=== PATIENT | female | born 1970 | race Caucasian/White ===

== ENCOUNTER 2016-12-08 21:52 | Emergency (ER) | payer OTHER ==
[2016-12-08] MEDS ORDERED: Zofran 4 MG/2 ML VIAL IV ONE (22:51)
[2016-12-08] MEDS ORDERED: Hydromorphone 1 mg/ml Ampule IV ONE (22:51)
[2016-12-08] MEDS ORDERED: Sodium Chloride 0.9% 1000 ML 1,000 ML IV STA (22:51)
--- NOTE | 2016-12-08 22:59 | ERPHSYRPT ---
- History of Present Illness Time Seen by Provider: 12/08/16 22:45 Historian: patient Exam Limitations: clinical condition Patient Subjective Stated Complaint: pt states she has been having abd pain mostly in the llq. states she has had pancreatitis approx 2 mos ago and this pain feels similar. Triage Nursing Assessment: pt alert and oriented, answers questions approp. pt ambulatory with steady gait noted. skin pink warm and dry. respirations nonlabored with lungs cta. abd soft and tender on lt side. bowel sounds present and hypo. pt states she is passing flatus. Physician History: PATIENT WITH HISTORY OF POST TRAUMATIC STRESS SYNDROME AND PANCREATITIS COMPLAINS OF LEFT SIDED AND LOWER ABDOMINAL PAINS FOR 5 HOURS ASSOCIATED NAUSEA. DENIES URINARY SYMPTOMS, FEVER, EMESIS OR DIARRHEA. Timing/Duration: today Activities at Onset: none Quality: sharpness Abdominal Pain Onset Location: LLQ Pain Radiation: no radiation Severity of Pain-Max: severe Severity of Pain-Current: severe Modifying Factors: Improves With: nothing Associated Symptoms: nausea Previous symptoms: no prior history Allergies/Adverse Reactions: morphine Allergy (Mild, Verified 12/08/16 22:14) Rash Home Medications: Alprazolam 0.25 mg [xanAX 0.25 MG] 1 mg PO HS 09/26/16 [History] Venlafaxine HCl ER 75 mg [Effexor XR 75 MG] 75 mg PO DAILY 09/26/16 [ History] Hx Tetanus, Diphtheria Vaccination/Date Given: Yes Hx Influenza Vaccination/Date Given: No Hx Pneumococcal Vaccination/Date Given: No Immunizations Up to Date: Yes - Review of Systems Constitutional: No Fever, No Chills Eyes: No Symptoms Ears, Nose, & Throat: No Symptoms, Epistaxis Respiratory: No Symptoms, No Cough, No Dyspnea Cardiac: No Symptoms, No Chest Pain, No Edema, No Syncope Abdominal/Gastrointestinal: Abdominal Pain, Nausea, No Vomiting, No Diarrhea Genitourinary Symptoms: No Symptoms, No Dysuria Musculoskeletal: No Symptoms, No Back Pain, No Neck Pain Skin: No Symptoms, No Rash Neurological: No Dizziness, No Focal Weakness, No Sensory Changes Psychological: No Symptoms Endocrine: No Symptoms All Other Systems: Reviewed and Negative - Past Medical History Pertinent Past Medical History: Yes Neurological History: No Pertinent History ENT History: No Pertinent History Cardiac History: Other Respiratory History: No Pertinent History Endocrine Medical History: No Pertinent History Musculoskeletal History: No Pertinent History GI Medical History: No Pertinent History, Gallbladder Disease, Irritable Bowel, Polyps History: No Pertinent History Psycho-Social History: Anxiety, Depression Female Reproductive Disorders: Abnormal Uterine Bleeding, Menstrual Problems Other Medical History: SMALL VESSEL DISEASE - Past Surgical History Past Surgical History: Yes Neuro Surgical History: No Pertinent History Cardiac: Cardiac Catheterization Respiratory: No Pertinent History Gastrointestinal: Cholecystectomy Genitourinary: No Pertinent History Musculoskeletal: Orthopedic Surgery Female Surgical History: Other Other Surgical History: Novasure surgery: patient states they cauterized her cervix and uterine lining, tubes removed - Social History Smoking Status: Former smoker Exposure to second hand smoke: No Drug Use: none Patient Lives Alone: No - Female History Hx Last Menstrual Period: 2008 ablation Hx Now: No - Nursing Vital Signs Nursing Vital Signs: Initial Vital Signs Temperature 97.4 F Temperature Source Oral Pulse Rate 78 Respiratory Rate 18 Blood Pressure [] 139/91 Pain Intensity 5 - Physical Exam General Appearance: no apparent distress, alert Eye Exam: PERRL/EOMI, eyes nml inspection Ears, Nose, Throat Exam: normal ENT inspection, pharynx normal, moist mucous membranes Neck Exam: normal inspection, non-tender, supple, full range of motion Respiratory Exam: normal breath sounds, lungs clear, No respiratory distress Cardiovascular Exam: regular rate/rhythm, normal heart sounds Gastrointestinal/Abdomen Exam: soft, normal bowel sounds, No tenderness (LLQ TENDERNESS), No mass Back Exam: normal inspection, normal range of motion, CVA tenderness, other ( LEFT CVA TENDERNESS), No vertebral tenderness Extremity Exam: normal inspection, normal range of motion, pelvis stable Neurologic Exam: alert, oriented x 3, cooperative, normal mood/affect, nml cerebellar function, sensation nml, No motor deficits Skin Exam: normal color, warm, dry SpO2 Interpretation: normal SpO2: 97 Oxygen Delivery: Room Air - CT Exams Abdomen/Pelvis CT Interpretation: Tele-radiologist Report (NO ACUTE FINDINGS) Ordered Tests: Active Orders 24 hr Category Date Time Status IV Insertion STAT Care 12/08/16 22:51 Active ABDOMEN AND PELVIS W CONTRAST [CT] Stat Exams 12/08/16 22:54 Taken AMYLASE Stat Lab 12/08/16 22:30 Completed BLOOD CULTURE Stat Lab 12/08/16 23:05 Received BMP Stat Lab 12/08/16 22:30 Completed CBC W DIFF Stat Lab 12/08/16 22:30 Completed LIPASE Stat Lab 12/08/16 22:30 Completed UA W/ MICROSCOPIC Stat Lab 12/08/16 22:15 Completed Urine Triage Profile Stat Lab 12/08/16 22:15 Completed Medication Summary Discontinued Medications Generic Name Dose Route Start Last Admin Trade Name Efrain PRN Reason Stop Dose Admin Acetaminophen/Hydrocodone Bitart Confirm 12/09/16 02:32 [place] 10/325 Mg Tablet Administered 12/09/16 02:33 Dose 2 tab .ROUTE .STK-MED ONE Hydromorphone HCl 1 mg 12/08/16 22:51 12/08/16 23:11 Hydromorphone 1 Mg/Ml Ampule IV 12/08/16 22:52 1 mg STAT ONE Administration Hydromorphone HCl Confirm 12/08/16 23:01 Hydromorphone 1 Mg/Ml Ampule Administered 12/08/16 23:02 Dose 1 mg .ROUTE .STK-MED ONE Sodium Chloride 1,000 mls @ 999 mls/hr 12/08/16 22:51 12/08/16 23:12 Sodium Chloride 0.9% 1000 Ml IV 12/08/16 23:51 999 mls/hr .Q1H1M STA Administration Sodium Chloride Confirm 12/08/16 23:01 Sodium Chloride 0.9% 1000 Ml Administered 12/08/16 23:02 Dose 1,000 mls @ ud .ROUTE .STK-MED ONE Sodium Chloride Confirm 12/09/16 00:47 Sodium Chloride 0.9% 1000 Ml Administered 12/09/16 00:48 Dose 1,000 mls @ ud .ROUTE .STK-MED ONE Sodium Chloride 1,000 mls @ 999 mls/hr 12/09/16 00:52 12/09/16 00:53 Sodium Chloride 0.9% 1000 Ml IV 12/09/16 01:52 999 mls/hr .Q1H1M STA Administration Ketorolac Tromethamine 30 mg 12/09/16 00:46 12/09/16 00:53 Toradol 30 Mg Injection IV 12/09/16 00:47 30 mg STAT ONE Administration Ketorolac Tromethamine Confirm 12/09/16 00:47 Toradol 30 Mg Injection Administered 12/09/16 00:48 Dose 30 mg .ROUTE .STK-MED ONE Ketorolac Tromethamine Confirm 12/09/16 00:51 Toradol 30 Mg Injection Administered 12/09/16 00:52 Dose 30 mg .ROUTE .STK-MED ONE Ondansetron HCl 4 mg 12/08/16 22:51 12/08/16 23:11 Zofran 4 Mg/2 Ml Vial IV 12/08/16 22:52 4 mg STAT ONE Administration Ondansetron HCl Confirm 12/08/16 23:01 Zofran 4 Mg/2 Ml Vial Administered 12/08/16 23:02 Dose 4 mg .ROUTE .STK-MED ONE Lab/Rad Data: Laboratory Result Diagrams 12/08/16 22:30 12/08/16 22:30 Laboratory Results 12/08/16 12/08/16 12/08/16 Range/Units 22:30 22:30 22:15 WBC 10.9 H (4.0-10.5) K/mm3 RBC 4.13 (4.1-5.4) M/mm3 Hgb 13.3 (12.0-16.0) gm/dl Hct 40.2 (35-47) % MCV 97.3 (78-100) fl MCH 32.2 H (26-32) pg MCHC 33.1 (32-36) g/dl RDW 12.0 (11.5-14.0) % Plt Count 238 (150-450) K/mm3 MPV 10.6 H (6-9.5) fl Gran % 55.8 (36.0-66.0) % Lymphocytes % 25.3 (24.0-44.0) % Monocytes % 12.9 H (0.0-12.0) % Eosinophils % 5.6 H (0.00-5.0) % Basophils % 0.4 (0.0-0.4) % Basophils # 0.04 (0-0.4) Sodium 140 (136-145) mEq/L Potassium 3.8 (3.5-5.1) mEq/L Chloride 103 (98-107) mEq/L Carbon Dioxide 28.3 (21-32) mEq/L Anion Gap 12.2 (5-15) MEQ/L BUN 12 (9-20) mg/dL Creatinine 0.85 (0.55-1.30) mg/dl Estimated GFR > 60 ML/MIN Glucose 101 (70-110) MG/DL Calcium 8.7 (8.5-10.1) mg/dL Amylase 55 (25-115) U/L Lipase 109 (73-393) U/L Ur Collection Type Urine Color (YELLOW) Urine Appearance (CLEAR) Urine pH (5-6) Ur Specific [place] (1.005-1.025) Urine Protein (Negative) Urine Glucose (UA) (NEGATIVE) mg/dL Urine Ketones (NEGATIVE) Urine Nitrite (NEGATIVE) Urine Bilirubin (NEGATIVE) Urine Urobilinogen (0-1) mg/dL Urine WBC (Auto) (NEGATIVE) Urine RBC (Auto) (0-5) Golden/ul Urine Microscopic RBC (0-2) /HPF Urine Microscopic WBC (0-5) /HPF Ur Epithelial Cells (FEW) /HPF Urine Bacteria (NEGATIVE) /HPF Urine Mucus (NEGATIVE) /HPF Urine Opiates Level NEG. (NEGATIVE) Ur Methadone NEG. (NEGATIVE) Urine Barbiturates NEG. (NEGATIVE) Ur Phencyclidine (PCP) NEG. (NEGATIVE) Urine Amphetamine NEG. (NEGATIVE) U Benzodiazepine Level POS. (NEGATIVE) Urine Cocaine NEG. (NEGATIVE) Urine Marijuana (THC) NEG. (NEGATIVE) Specimen Received 12/08/16 Range/Units 22:15 WBC (4.0-10.5) K/mm3 RBC (4.1-5.4) M/mm3 Hgb (12.0-16.0) gm/dl Hct (35-47) % MCV (78-100) fl MCH (26-32) pg MCHC (32-36) g/dl RDW (11.5-14.0) % Plt Count (150-450) K/mm3 MPV (6-9.5) fl Gran % (36.0-66.0) % Lymphocytes % (24.0-44.0) % Monocytes % (0.0-12.0) % Eosinophils % (0.00-5.0) % Basophils % (0.0-0.4) % Basophils # (0-0.4) Sodium (136-145) mEq/L Potassium (3.5-5.1) mEq/L Chloride (98-107) mEq/L Carbon Dioxide (21-32) mEq/L Anion Gap (5-15) MEQ/L BUN (9-20) mg/dL Creatinine (0.55-1.30) mg/dl Estimated GFR ML/MIN Glucose (70-110) MG/DL Calcium (8.5-10.1) mg/dL Amylase (25-115) U/L Lipase (73-393) U/L Ur Collection Type CLEAN CATCH Urine Color YELLOW (YELLOW) Urine Appearance CLEAR (CLEAR) Urine pH 6.5 (5-6) Ur Specific [place] >=1.030 (1.005-1.025) Urine Protein TRACE (Negative) Urine Glucose (UA) NEGATIVE (NEGATIVE) mg/dL Urine Ketones NEGATIVE (NEGATIVE) Urine Nitrite NEGATIVE (NEGATIVE) Urine Bilirubin NEGATIVE (NEGATIVE) Urine Urobilinogen 2 (0-1) mg/dL Urine WBC (Auto) NEGATIVE (NEGATIVE) Urine RBC (Auto) NEGATIVE (0-5) Golden/ul Urine Microscopic RBC 2-5 (0-2) /HPF Urine Microscopic WBC 0-2 (0-5) /HPF Ur Epithelial Cells MANY (FEW) /HPF Urine Bacteria MODERATE (NEGATIVE) /HPF Urine Mucus MANY (NEGATIVE) /HPF Urine Opiates Level (NEGATIVE) Ur Methadone (NEGATIVE) Urine Barbiturates (NEGATIVE) Ur Phencyclidine (PCP) (NEGATIVE) Urine Amphetamine (NEGATIVE) U Benzodiazepine Level (NEGATIVE) Urine Cocaine (NEGATIVE) Urine Marijuana (THC) (NEGATIVE) Specimen Received 12/08/16 2300 - Progress Progress: improved, pain not gone completely Progress Note: 12/09/16 00:33 PATIENT GIVEN IV NORMAL SALINE 1 LITER BOLUS, ZOFRAN 4MG, DILAUDID 1MG IV, FOLLOWED BY TORADOL 30MG IV WITH MODERATE RELIEF 12/09/16 02:31 Counseled pt/family regarding: lab results, diagnosis, need for follow-up, rad results - Departure Time of Disposition: 02:30 Departure Disposition: Home Clinical Impression: LEFT RENAL COLIC Condition: Stable Critical Care Time: No Referrals: CRUZ SUTHERLAND NP [Primary Care Provider] - Additional Instructions: USE STRAINER TO STRAIN URINE FOR 1 WEEK. TORADOL 10MG EVERY 6 HOURS FOR MILD TO MODERATE PAIN AND [place] 10/325 EVERY 4 HOURS FOR SEVERE PAIN. CONSULT YOUR FAMILY PHYSICIAN FOR EVALUATION IN 1 WEEK. Prescriptions: Hydrocodone/APAP 10/325 mg [[place] 10/325 MG Tablet] 1 tab PO Q4H PRN PRN # 15 tablet PRN Reason: Severe Pain Ketorolac Tromethamine [Toradol] 10 mg PO Q6H PRN PRN #20 tablet PRN Reason: Mild To Moderate Pain
[2016-12-08] MEDS ORDERED: Hydromorphone 1 mg/ml Ampule ONE (23:01)
[2016-12-08] MEDS ORDERED: Zofran 4 MG/2 ML VIAL ONE (23:01)
[2016-12-08] MEDS ORDERED: Sodium Chloride 0.9% 1000 ML 1,000 ML ONE (23:01)
[2016-12-08 23:02] LABS: BASOPHIL % 0.4 % (0.0-0.4); Eosinophil % 5.6 % (0.00-5.0); Granulocytes % 55.8 % (36.0-66.0); Lymphocytes % 25.3 % (24.0-44.0); Mean Cell Volume 97.3 fl (78-100); Mean Corpuscular Hemoglobin 32.2 pg (26-32); Mean Platelet Volume 10.6 fl (6-9.5); Monocytes % 12.9 % (0.0-12.0); Platelet Count 238 K/mm3 (150-450); Red Blood Count 4.13 M/mm3 (4.1-5.4); White Blood Count 10.9 K/mm3 (4.0-10.5)
[2016-12-08 23:07] LABS: ANION GAP 12.2 MEQ/L (5-15); BLOOD UREA NITROGEN 12 mg/dL (9-20); CHLORIDE 103 mEq/L (98-107); Carbon Dioxide 28.3 mEq/L (21-32); Glucose 101 MG/DL (70-110); LIPASE 109 U/L (73-393); Potassium 3.8 mEq/L (3.5-5.1); SODIUM 140 mEq/L (136-145)
[2016-12-08 23:23] LABS: Bacteria MODERATE /HPF (NEGATIVE); COMPLETE URINE MICROSCOPIC? YES; Collection Type CLEAN CATCH; Epithelial Cells MANY /HPF (FEW); Mucus MANY /HPF (NEGATIVE); Ph 6.5 (5-6); WBC 0-2 /HPF (0-5)
[2016-12-09] MEDS ORDERED: TORAdol 30 mg Injection IV ONE (00:46)
[2016-12-09] MEDS ORDERED: TORAdol 30 mg Injection ONE ×2 (00:47→00:51)
[2016-12-09] MEDS ORDERED: Sodium Chloride 0.9% 1000 ML 1,000 ML ONE (00:47)
[2016-12-09] MEDS ORDERED: Sodium Chloride 0.9% 1000 ML 1,000 ML IV STA (00:52)
[2016-12-09] MEDS ORDERED: Norco 10/325 MG Tablet ONE (02:32)
[2016-12-09 02:34] VITALS: BP 139/91; PULSE 78
[2016-12-09] MEDS ORDERED: Norco 10/325 MG Tablet PO ONE (02:35)
[2016-12-09 02:36] VITALS: O2SAT 97
--- NOTE | 2016-12-09 08:33 | XRAY ---
Indication: Left lower quadrant pain. Fever. History of pancreatitis. Multiple contiguous axial images obtained through the abdomen and pelvis using 80 cc Isovue 370 contrast only. Comparison: March 02, 2015. Lung bases again demonstrates minimal bibasilar dependent atelectasis. No consolidation or effusion. Heart is not enlarged. Noncontrasted stomach and bowel loops appear nonobstructed. There is now mild scattered colonic fecal debris throughout. Normal appendix. Again previous cholecystectomy. No free fluid/air. Remaining liver, pancreas, spleen, adrenal glands, kidneys, ureters, bladder, uterus, and aorta appear unremarkable. No pathologic retroperitoneal lymphadenopathy. Osseous structures intact. Impression: 1. Mild fecal stasis without obstruction. 2. No new or acute intra-abdominal/pelvic abnormalities. Comment: Preliminary interpretation was made by [facility] [[email or web address]]. No discrepancy. CTDI 21.50
== END 2016-12-09 02:50 | disposition home or self-care (01) ==
LOC: ED 21:52
DX: N23 Unspecified renal colic (principal); R10.32 Left lower quadrant pain; R11.10 Vomiting, unspecified
CPT/HCPCS: 36000; 36415; 74177; 80048; 80307; 81000; 82150; 83690; 85025; 87040; 96360; 96361; 96374; 96375; 99283; 99284; J1170; J1885; J2405

== ENCOUNTER 2018-10-17 11:17 | Emergency (ER) | payer OTHER ==
[2018-10-17 11:34] VITALS: O2SAT 98
[2018-10-17] MEDS ORDERED: Sodium Chloride 0.9% 1000 ML 1,000 ML IV STA (12:03)
--- NOTE | 2018-10-17 12:09 | ERPHSYRPT ---
- History of Present Illness Time Seen by Provider: 10/17/18 12:05 Historian: patient Exam Limitations: no limitations Patient Subjective Stated Complaint: pt here left flank pain off and on for 3 weeks, but has been consitant for a week now, has been seen twice for this problem and had blood work done Triage Nursing Assessment: pt alert, resp easy. skin w/d/p. abd soft with bs heard, no edema noted Physician History: 48-year-old white female with history of PTSD, pancreatitis, gallbladder disease , irritable bowel, polyps, anxiety, depression Patient arrives with complaint of left flank pain for 3 weeks she apparently [facility] and is also been seen by Larissa Wooten. She states that she was told that her renal chemistries were somewhat abnormal. She states that she was scheduled the for either scan or ultrasound of her kidneys next week however she feels like she cannot wait any longer she feels like she has increasing pain in her left flank and she feels like she is having shakiness. Past medical history includes PTSD, pancreatitis, gallbladder disease, irritable bowel disease, polyps, anxiety, depression, abnormal uterine bleeding , small vessel disease Past surgical history includes cardiac catheter, cholecystectomy, orthopedic surgery, cervix uterus cauterized and tubes removed. Timing/Duration: week(s) (3 weeks) Activities at Onset: none Quality: aching Abdominal Pain Onset Location: flank (left flank) Pain Radiation: no radiation Severity of Pain-Max: moderate Severity of Pain-Current: moderate Modifying Factors: Improves With: nothing Associated Symptoms: back (left flank pain), No chest pain, No diaphoresis, No diarrhea, No fever/chills, No fatigue, No headache, No heartburn, No loss of appetite, No nausea, No neck pain, No rash, No shortness of breath, No syncope, No testicular pain, No vomiting, No weakness Previous symptoms: recently seen ([facility] at [facility] and by Larissa Wooten for same) Allergies/Adverse Reactions: morphine Allergy (Mild, Verified 10/17/18 11:34) Rash Home Medications: Alprazolam 0.25 mg [xanAX 0.25 MG] 1 mg PO HS 09/26/16 [History] Venlafaxine HCl ER 75 mg [Effexor XR 75 MG] 225 mg PO DAILY 09/26/16 [ History] Trazodone HCl 50 mg [Desyrel 50 mg] 100 mg DAILY 10/17/18 [History] Hx Tetanus, Diphtheria Vaccination/Date Given: No Hx Influenza Vaccination/Date Given: No Hx Pneumococcal Vaccination/Date Given: No Immunizations Up to Date: Yes - Review of Systems Constitutional: No Fever, No Chills Eyes: No Symptoms Ears, Nose, & Throat: No Symptoms Respiratory: No Cough, No Dyspnea Cardiac: No Chest Pain, No Edema, No Syncope Abdominal/Gastrointestinal: No Abdominal Pain, No Nausea, No Vomiting, No Diarrhea, No Constipation, No Hematemesis, No Hematochezia, No Melena, No Dysphagia Genitourinary Symptoms: Flank Pain (left flank pain), No Dysuria, No Frequency, No Hematuria, No Hesitancy, No Incontinence, No Urgency, No Urinary Retention, No Menorrhagia, No , No Vaginal Bleeding, No Vaginal Discharge, No Vaginal Itching Musculoskeletal: Back Pain (left flank pain), No Arthralgias, No Neck Pain, No Deformity, No Fall, No Injury, No Joint Redness, No Joint Pain, No Joint Swelling, No Myalgias Skin: No Rash Neurological: No Dizziness, No Focal Weakness, No Sensory Changes Psychological: No Symptoms Endocrine: No Symptoms All Other Systems: Reviewed and Negative - Past Medical History Pertinent Past Medical History: Yes Neurological History: No Pertinent History ENT History: No Pertinent History Cardiac History: Other Respiratory History: No Pertinent History Endocrine Medical History: No Pertinent History Musculoskeletal History: No Pertinent History GI Medical History: No Pertinent History, Gallbladder Disease, Irritable Bowel, Polyps History: No Pertinent History Psycho-Social History: Anxiety, Depression Female Reproductive Disorders: Abnormal Uterine Bleeding, Menstrual Problems Other Medical History: SMALL VESSEL DISEASE - Past Surgical History Past Surgical History: Yes Neuro Surgical History: No Pertinent History Cardiac: Cardiac Catheterization Respiratory: No Pertinent History Gastrointestinal: Cholecystectomy Genitourinary: No Pertinent History Musculoskeletal: Orthopedic Surgery Female Surgical History: Other Other Surgical History: Novasure surgery: patient states they cauterized her cervix and uterine lining, tubes removed - Social History Smoking Status: Never smoker Exposure to second hand smoke: No Drug Use: none Patient Lives Alone: No - Female History Hx Last Menstrual Period: 11 years ago Hx Now: No - Nursing Vital Signs Nursing Vital Signs: Initial Vital Signs Temperature 98.6 F 12/20/18 11:21 Pulse Rate 92 H 10/17/18 11:21 Respiratory Rate 16 10/17/18 11:21 Blood Pressure 130/83 10/17/18 11:21 O2 Sat by Pulse Oximetry 98 10/17/18 11:21 Pain Scale Pain Intensity 3 - Physical Exam General Appearance: no apparent distress, alert Eye Exam: PERRL/EOMI, eyes nml inspection Ears, Nose, Throat Exam: normal ENT inspection, pharynx normal, moist mucous membranes Neck Exam: normal inspection, non-tender, supple, full range of motion Respiratory Exam: normal breath sounds, lungs clear, No respiratory distress Cardiovascular Exam: regular rate/rhythm, normal heart sounds Gastrointestinal/Abdomen Exam: soft, normal bowel sounds, No tenderness, No mass Back Exam: normal range of motion, CVA tenderness (left flank tenderness), No vertebral tenderness, No rash, No decreased range of motion, No muscle spasm, No point tenderness Extremity Exam: normal inspection, normal range of motion, pelvis stable Neurologic Exam: alert, oriented x 3, cooperative, data communications software consultant II-XII nml as tested, normal mood/affect, nml cerebellar function, sensation nml, No motor deficits SpO2 Interpretation: normal (98%) SpO2: 98 Oxygen Delivery: Room Air - Course Nursing assessment & vital signs reviewed: Yes - CT Exams Abdomen/Pelvis CT Interpretation: Discussed w/radiologist (CT abdomen and pelvis: Impression: 1. Negative renal calculus for obstructive uropathy. 2. New 2.5 cm left ovarin cyst. 3. Mild fecal stasis without obstruction and tiny fatty umbilical hernia, 4. Remaining CT abdomen/pelvis without contrast negative.) Ordered Tests: Active Orders 24 hr Category Date Time Status IV Insertion STAT Care 10/17/18 12:03 Active ABDOMEN AND PELVIS W/0 CONTRAS [CT] Stat Exams 10/17/18 12:31 Completed AMYLASE Stat Lab 10/17/18 12:15 Completed CBC W DIFF Stat Lab 10/17/18 12:15 Completed CMP Stat Lab 10/17/18 12:15 Completed HCG QUALITATIVE,SERUM Stat Lab 10/17/18 12:00 Completed LIPASE Stat Lab 10/17/18 12:15 Completed UA W/RFX UR CULTURE Stat Lab 10/17/18 12:07 Completed Urine Triage Profile Stat Lab 10/17/18 12:07 Completed Medication Summary Discontinued Medications Generic Name Dose Route Start Last Admin Trade Name Efrain PRN Reason Stop Dose Admin Sodium Chloride 1,000 mls @ 999 mls/hr 10/17/18 12:03 10/17/18 13:05 Sodium Chloride 0.9% 1000 Ml IV 10/17/18 13:03 Infused .Q1H1M STA Infusion Sodium Chloride Confirm 10/17/18 12:10 Sodium Chloride 0.9% 1000 Ml Administered 10/17/18 12:11 Dose 1,000 mls @ ud .ROUTE .STK-MED ONE Lab/Rad Data: Laboratory Result Diagrams 10/17/18 12:15 10/17/18 12:15 Laboratory Results 10/17/18 10/17/18 10/17/18 Range/Units 12:15 12:15 12:07 WBC 5.8 (4.0-10.5) K/mm3 RBC 4.34 (4.1-5.4) M/mm3 Hgb 14.0 (12.0-16.0) gm/dl Hct 42.9 (35-47) % MCV 98.8 (78-100) fl MCH 32.3 H (26-32) pg MCHC 32.6 (32-36) g/dl RDW 12.6 (11.5-14.0) % Plt Count 236 (150-450) K/mm3 MPV 10.7 H (6-9.5) fl Gran % 47.5 (36.0-66.0) % Eos # (Auto) 0.39 (0-0.5) Absolute Lymphs (auto) 2.18 (1.0-4.6) Absolute Monos (auto) 0.48 (0.0-1.3) Lymphocytes % 37.3 (24.0-44.0) % Monocytes % 8.2 (0.0-12.0) % Eosinophils % 6.7 H (0.00-5.0) % Basophils % 0.3 (0.0-0.4) % Absolute Granulocytes 2.77 (1.4-6.9) Basophils # 0.02 (0-0.4) Sodium 141 (137-145) mmol/L Potassium 3.7 (3.5-5.1) mmol/L Chloride 104 (98-107) mmol/L Carbon Dioxide 30 (22-30) mmol/L Anion Gap 11.1 (5-15) MEQ/L BUN 11 (7-17) mg/dL Creatinine 0.73 (0.52-1.04) mg/dL Estimated GFR > 60.0 ML/MIN Glucose 105 (74-106) mg/dL Calcium 9.1 (8.4-10.2) mg/dL Total Bilirubin 0.70 (0.2-1.3) mg/dL AST 19 (14-36) U/L ALT 16 (0-35) U/L Alkaline Phosphatase 74 (38-126) U/L Serum Total Protein 7.3 (6.3-8.2) g/dL Albumin 4.3 (3.5-5.0) g/dL Amylase 75 (30-110) U/L Lipase 49 (23-300) U/L Serum , Qual (Negative) Urine Color (YELLOW) Urine Appearance (CLEAR) Urine pH (5-6) Ur Specific [place] (1.005-1.025) Urine Protein (Negative) Urine Ketones (NEGATIVE) Urine Blood (0-5) Golden/ul Urine Nitrite (NEGATIVE) Urine Bilirubin (NEGATIVE) Urine Urobilinogen (0-1) mg/dL Ur Leukocyte Esterase (NEGATIVE) Urine WBC (Auto) (0-5) /HPF Urine RBC (Auto) (0-2) /HPF U Epithel Cells (Auto) (FEW) /HPF Urine Bacteria (Auto) (NEGATIVE) /HPF Urine Mucus (Auto) (NEGATIVE) /HPF Urine Culture Reflexed (NO) Urine Glucose (NEGATIVE) mg/dL Urine Opiates Level NEGATIVE (NEGATIVE) Ur Methadone NEGATIVE (NEGATIVE) Urine Barbiturates NEGATIVE (NEGATIVE) Ur Phencyclidine (PCP) NEGATIVE (NEGATIVE) Urine Amphetamine NEGATIVE (NEGATIVE) U Benzodiazepine Level POSITIVE (NEGATIVE) Urine Cocaine NEGATIVE (NEGATIVE) Urine Marijuana (THC) NEGATIVE (NEGATIVE) 10/17/18 10/17/18 Range/Units 12:07 12:00 WBC (4.0-10.5) K/mm3 RBC (4.1-5.4) M/mm3 Hgb (12.0-16.0) gm/dl Hct (35-47) % MCV (78-100) fl MCH (26-32) pg MCHC (32-36) g/dl RDW (11.5-14.0) % Plt Count (150-450) K/mm3 MPV (6-9.5) fl Gran % (36.0-66.0) % Eos # (Auto) (0-0.5) Absolute Lymphs (auto) (1.0-4.6) Absolute Monos (auto) (0.0-1.3) Lymphocytes % (24.0-44.0) % Monocytes % (0.0-12.0) % Eosinophils % (0.00-5.0) % Basophils % (0.0-0.4) % Absolute Granulocytes (1.4-6.9) Basophils # (0-0.4) Sodium (137-145) mmol/L Potassium (3.5-5.1) mmol/L Chloride (98-107) mmol/L Carbon Dioxide (22-30) mmol/L Anion Gap (5-15) MEQ/L BUN (7-17) mg/dL Creatinine (0.52-1.04) mg/dL Estimated GFR ML/MIN Glucose (74-106) mg/dL Calcium (8.4-10.2) mg/dL Total Bilirubin (0.2-1.3) mg/dL AST (14-36) U/L ALT (0-35) U/L Alkaline Phosphatase (38-126) U/L Serum Total Protein (6.3-8.2) g/dL Albumin (3.5-5.0) g/dL Amylase (30-110) U/L Lipase (23-300) U/L Serum , Qual NEGATIVE (Negative) Urine Color YELLOW (YELLOW) Urine Appearance SLIGHTLY CLOUDY (CLEAR) Urine pH 5.0 (5-6) Ur Specific [place] 1.023 (1.005-1.025) Urine Protein NEGATIVE (Negative) Urine Ketones NEGATIVE (NEGATIVE) Urine Blood NEGATIVE (0-5) Golden/ul Urine Nitrite NEGATIVE (NEGATIVE) Urine Bilirubin NEGATIVE (NEGATIVE) Urine Urobilinogen NEGATIVE (0-1) mg/dL Ur Leukocyte Esterase NEGATIVE (NEGATIVE) Urine WBC (Auto) 0-2 (0-5) /HPF Urine RBC (Auto) 0-2 (0-2) /HPF U Epithel Cells (Auto) FEW (FEW) /HPF Urine Bacteria (Auto) RARE (NEGATIVE) /HPF Urine Mucus (Auto) MANY (NEGATIVE) /HPF Urine Culture Reflexed NO (NO) Urine Glucose NEGATIVE (NEGATIVE) mg/dL Urine Opiates Level (NEGATIVE) Ur Methadone (NEGATIVE) Urine Barbiturates (NEGATIVE) Ur Phencyclidine (PCP) (NEGATIVE) Urine Amphetamine (NEGATIVE) U Benzodiazepine Level (NEGATIVE) Urine Cocaine (NEGATIVE) Urine Marijuana (THC) (NEGATIVE) - Progress Progress: improved Progress Note: 10/17/18 13:41 48-year-old white female who complains of left flank pain symptoms for several weeks Patient had been seen by a nurse practitioner and had been told she had abnormal renal functions. Patient apparently scheduled to follow-up with [facility] for scan of her kidneys Patient here in the emergency room essentially normal lab work. CT of the abdomen and pelvis impression 1 negative renal calculus or evidence for obstructive uropathy 2. New 2.5 cm left ovarian cyst 3. Mild fecal stasis without obstruction and tiny fatty umbilical hernia 4. Remaining CT abdomen and pelvis without contrast is negative. Patient appears to be stable patient was given normal saline 1 L. Will give patient Toradol 30 mg IV. We'll discharge patient home Advil every 6 hours as needed for pain follow-up with family doctor. plenty of fluids. - Departure Time of Disposition: 13:43 Departure Disposition: Home Clinical Impression: Left flank pain Ovarian cyst Qualifiers: Laterality: left Qualified Code(s): N83.202 - Unspecified ovarian cyst, left side Condition: Fair Critical Care Time: No Referrals: CRUZ WOOTEN, MARK ANTHONY [Primary Care Provider] - Additional Instructions: Return home. Plenty of fluids. Tylenol every 4 hours or Motrin every 6 hours as needed for pain. Follow-up with your family doctor. Return for acute distress or for severe symptoms.
[2018-10-17] MEDS ORDERED: Sodium Chloride 0.9% 1000 ML 1,000 ML ONE (12:10)
[2018-10-17 12:18] LABS: BASOPHIL % 0.3 % (0.0-0.4); Basophil (Absolute #) 0.02 (0-0.4); Eosinophil % 6.7 % (0.00-5.0); Eosinophil (Absolute #) 0.39 (0-0.5); Granulocyte Absolute (ANC) 2.77 (1.4-6.9); Granulocytes % 47.5 % (36.0-66.0); Hematocrit 42.9 % (35-47); Lymphocyte (Absolute #) 2.18 (1.0-4.6); Lymphocytes % 37.3 % (24.0-44.0); Mean Cell Volume 98.8 fl (78-100); Mean Corpuscular Hemoglobin 32.3 pg (26-32); Mean Corpuscular Hgb Concent. 32.6 g/dl (32-36); Mean Platelet Volume 10.7 fl (6-9.5); Monocyte (Absolute #) 0.48 (0.0-1.3); Monocytes % 8.2 % (0.0-12.0); Platelet Count 236 K/mm3 (150-450); Red Blood Count 4.34 M/mm3 (4.1-5.4); Red Cell Distribution Width 12.6 % (11.5-14.0); White Blood Count 5.8 K/mm3 (4.0-10.5)
[2018-10-17 12:28] LABS: ALBUMIN 4.3 g/dL (3.5-5.0); ALKALINE PHOSPHATASE 74 U/L (38-126); AMYLASE 75 U/L (30-110); ANION GAP 11.1 MEQ/L (5-15); BLOOD UREA NITROGEN 11 mg/dL (7-17); CHLORIDE 104 mmol/L (98-107); Calcium 9.1 mg/dL (8.4-10.2); Carbon Dioxide 30 mmol/L (22-30); Creatinine 1 0.73 mg/dL (0.52-1.04); Glucose 105 mg/dL (74-106); LIPASE 49 U/L (23-300); Potassium 3.7 mmol/L (3.5-5.1); SGOT/AST 19 U/L (14-36); SGPT/ALT 16 U/L (0-35); SODIUM 141 mmol/L (137-145); Total Protein 7.3 g/dL (6.3-8.2)
[2018-10-17 12:30] LABS: Appearance SLIGHTLY CLOUDY (CLEAR); Bilirubin NEGATIVE (NEGATIVE); Blood NEGATIVE Ery/ul (0-5); Glucose NEGATIVE (NEGATIVE); Ketones NEGATIVE (NEGATIVE); Leukocyte Esterase NEGATIVE (NEGATIVE); Nitrite NEGATIVE (NEGATIVE); Protein,Urine Dip NEGATIVE (Negative); Specific Gravity 1.023 (1.005-1.025); Urobilinogen NEGATIVE mg/dL (0-1)
[2018-10-17 12:47] LABS: Amphetamine,Urine NEGATIVE (NEGATIVE); Barbiturate,Urine NEGATIVE (NEGATIVE); Benzodiazepine,Urine POSITIVE (NEGATIVE); Cocaine,Urine NEGATIVE (NEGATIVE); Methadone,Urine NEGATIVE (NEGATIVE); Opiate,Urine NEGATIVE (NEGATIVE); PCP,Urine NEGATIVE (NEGATIVE); THC,Urine NEGATIVE (NEGATIVE)
[2018-10-17 13:03] VITALS: BP 123/80; PULSE 67
--- NOTE | 2018-10-17 13:35 | XRAY ---
Indication: Left flank pain. Multiple contiguous axial images obtained through the abdomen and pelvis without contrast using renal stone protocol. Comparison: December 09, 2016. Lung bases again demonstrates minimal bibasilar dependent atelectasis. No infiltrate or effusion. Heart is not enlarged. Again no renal calculus or evidence for obstructive uropathy in either system. New 2.5 cm left ovary cyst. No free fluid/air. Noncontrasted stomach and bowel loops appear nonobstructed. Normal appendix. Again mild diffuse scattered colonic fecal debris, less than before. Again previous cholecystectomy. Remaining liver, pancreas, spleen, adrenal glands, kidneys, ureters, bladder, uterus, and aorta appear unremarkable for noncontrast exam. Osseous structures intact. Stable tiny fatty umbilical hernia. Impression: 1. Again negative renal calculus or evidence for obstructive uropathy. 2. New 2.5 cm left ovary cyst. 3. Again mild fecal stasis without obstruction and tiny fatty umbilical hernia. 4. Remaining CT abdomen/pelvis without contrast exam is negative. CT DI 21.59
[2018-10-17] MEDS ORDERED: TORAdol 30 mg Injection IM ONE (14:01)
[2018-10-17] MEDS ORDERED: TORAdol 30 mg Injection ONE (14:02)
== END 2018-10-17 14:14 | disposition home or self-care (01) ==
LOC: ED 11:17
DX: R10.9 Unspecified abdominal pain (principal); N83.202 Unspecified ovarian cyst, left side; Z79.899 Other long term (current) drug therapy
CPT/HCPCS: 36000; 36415; 74176; 80053; 80307; 81001; 81025; 82150; 83690; 85025; 96360; 96372; 99284; J1885